=== PATIENT | female | born 1970 | race Two or more races ===

== ENCOUNTER 2023-10-19 09:22 | Outpatient (CLI) | payer OTHER ==
[~2023-10-19 09:22] MED LIST: SYNTHROID125 MCG PO
== END 2023-10-19 09:35 | disposition home or self-care (01) ==
LOC: MAMO-SONO 09:22
PROVIDERS: ATTEND General Practice
DX: E03.9 Hypothyroidism, unspecified (principal); I10 Essential (primary) hypertension; Z12.39 Encounter for other screening for malignant neoplasm of breast; Z12.31 Encounter for screening mammogram for malignant neoplasm of breast; Z12.11 Encounter for screening for malignant neoplasm of colon; Z13.228 Encounter for screening for other metabolic disorders; Z13.220 Encounter for screening for lipoid disorders; Z13.1 Encounter for screening for diabetes mellitus; E66.3 Overweight